=== PATIENT | male | born 1965 | race American Indian/Alaskan Native ===

== ENCOUNTER 2016-08-19 07:17 | Day surgery (SDC) | payer BC ==
[2016-08-19 07:18] VITALS: BMI 41.3
--- NOTE | 2016-08-19 08:02 | C.PDOC ---
History Of Present Illness 50-year-old male, PMhx includes Hypertension, presents to the emergency department with complaints of difficulty urinating x 1 week. Patient states he feels like he cannot empty his bladder, and describes his urine as "dribbling." Patient was seen by Dr Dave Salas , who referred patient to ED for further evaluation. (-)penile discharge (-)hematuria (-)rashes (-)fevers (-)back pain (- )abdominal pain, or any other associated symptoms. No other complaints at this time. Time Seen by Provider: 08/19/16 07:29 Chief Complaint (Nursing): Medical Clearance History Per: Patient History/Exam Limitations: no limitations Onset/Duration Of Symptoms: Days Current Symptoms Are (Timing): Still Present Severity: Moderate Past Medical History Reviewed: Historical Data, Nursing Documentation, Vital Signs Vital Signs: Last Vital Signs Temp 97.5 F L 08/19/16 16:15 Pulse 68 08/19/16 16:15 Resp 20 08/19/16 16:15 BP 163/97 H 08/19/16 16:15 Pulse Ox 97 08/19/16 16:15 - Medical History PMH: HTN, Kidney Stones, Chronic Kidney Disease Family History: States: No Known Family Hx - Social History Hx Alcohol Use: Yes Hx Substance Use: No Review Of Systems Except As Marked, All Systems Reviewed And Found Negative. Constitutional: Negative for: Fever Gastrointestinal: Negative for: Nausea, Vomiting, Abdominal Pain Genitourinary: Positive for: Other (Inability to void). Negative for: Dysuria, Hematuria, Penile Discharge Musculoskeletal: Negative for: Back Pain Physical Exam - Physical Exam Appears: Non-toxic, No Acute Distress Skin: Warm, Dry, No Rash Head: Atraumatic, Normacephalic Eye(s): bilateral: Normal Inspection, EOMI Nose: Normal Oral Mucosa: Moist Neck: Normal ROM Chest: Symmetrical Cardiovascular: Rhythm Regular Respiratory: Normal Breath Sounds, No Accessory Muscle Use Gastrointestinal/Abdominal: Soft, No Tenderness Extremity: Normal ROM Neurological/Psych: Oriented x3, Normal Speech ED Course And Treatment O2 Sat by Pulse Oximetry: 96 Progress Note: Case discussed w/ Dr Dave Salas, who states to admit patient under his service. No further labs needed. Disposition - Disposition Disposition: HOSPITALIZED Disposition Time: 11:00 Condition: STABLE - Clinical Impression Clinical Impression: Urinary retention - Scribe Statement The provider has reviewed the documentation as recorded by the Scribe Jill Chavez All medical record entries made by the Jairoibe were at my direction and personally dictated by me. I have reviewed the chart and agree that the record accurately reflects my personal performance of the history, physical exam, medical decision making, and the department course for this patient. I have also personally directed, reviewed, and agree with the discharge instructions and disposition.
[2016-08-19] MEDS ORDERED: cefTRIAXone IV 1 gm in Dextros 50 ML IVPB ONE (09:00)
[2016-08-19] MEDS ORDERED: Lactated Ringer's 1,000 ML IV ONE (13:44)
[2016-08-19] MEDS ORDERED: Midazolam 2 MG/2 ML VIAL ONE (13:52)
[2016-08-19] MEDS ORDERED: Propofol 10 mg/ml Inj (20 ML) ONE (13:52)
--- NOTE | 2016-08-19 15:05 | RAD ---
HISTORY: INCONTINENCE COMPARISON: No prior. FINDINGS: BOWEL: Normal. No obstruction. No free air. BONES: No acute findings. Possible Paget disease pelvic osseous structures OTHER FINDINGS: None. IMPRESSION: No significant or acute findings to account for/ related to the clinical presentation. Additional benign and/or incidental findings described above.
[2016-08-19 15:54] VITALS: PULSE 68
--- NOTE | 2016-08-19 16:49 | RAD ---
PROCEDURE: Intraoperative Fluoroscopy. HISTORY: INCONTINENCE FINDINGS: Fluoroscopic assistance was provided for urinary retention. Please than 1 hr fluoroscopic time utilized during performance of the procedure.
[2016-08-19 19:21] VITALS: O2SAT 96
[2016-08-19 19:46] VITALS: BP 160/90; RESP 18; TEMP 97.1
--- NOTE | 2016-08-22 17:24 | CARD ---
APPROVED REPORT EKG Measurement Heart [id number] <Conclusion> Normal sinus rhythm Moderate voltage criteria for LVH, may be normal variant Nonspecific T wave abnormality Abnormal ECG
--- NOTE | 2016-09-06 11:14 | HP ---
REASON FOR ADMISSION: Urology emergency admission. The reason it is an emergency admission is the patient cannot urinate, he is in retention. HISTORY: This is a very pleasant 50-year-old gentleman who has voiding dysfunction, decreased force of stream. I suspect urethral stricture disease. He has significant history of gross hematuria, history of kidney stones. He is here now because he cannot urinate. We discussed options. It is a holiday weekend, but he is unable to urinate and we are bringing him in as an emergency. He is here for a cystoscopy, possible IOU (see the addendum listed below). PAST MEDICAL AND SURGICAL HISTORY: He has no history of an NH or CVA. MEDICATIONS: See the chart. ALLERGIES: None. REVIEW OF SYSTEMS: As above. 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 He is a very pleasant gentleman about the entire matter, but he is in severe pain and discomfort, req uiring an emergency admission and emergency procedure. PHYSICAL EXAMINATION: GENERAL: Well-developed, well-nourished male. His body habitus is noted. He is very tall. His physical exam is otherwise unremarkable. LUNGS: Clear. HEART: Normal sinus. ABDOMEN: Overall soft. GENITOURINARY: He has no testicular masses. RECTAL: Deferred till cystoscopy, but I will mention now, 30 gram prostate, soft and smooth. LABORATORY VALUES: In the chart and within relatively normal limits. DIAGNOSES: Urinary retention, voiding dysfunction, decreased force of stream (I suspect a urethral s tricture). PLAN: The patient will be given antibiotic prophylaxis. He will go to the OR for immediate cystosco py, internal optical urethrotomy with insertion of a Mtz catheter, then further plans will follow. ADDENDUM: I subsequently see the operative report. We actually found a tremendously large bladder s tone that must be with the patient and causing the problem. See the operative report. During this procedure, as you can see in the operative report, it was not reasonable to try to get the whol e stone. I tried using a little bit of a crushing, grasping forceps, but it was too big and I did no t think I should break the equipment and availability for laser etc., was not something that we could have done as an emergency with this team that I had with me. So we left the patient with an indwelling Mtz catheter. Again, it is a holiday weekend, it is an emergency and we relieved him of his trouble where he could not urinate. Hardik Salas MD cc: [id number] TT: 09/06/2016 11:14:10 pedro
--- NOTE | 2016-09-06 11:27 | OP ---
PROCEDURE DATE: 08/19/2016 PREOPERATIVE DIAGNOSES: Urinary retention, voiding dysfunction, rule out urethral stricture. POSTOPERATIVE DIAGNOSES: Urinary retention, voiding dysfunction, rule out urethral stricture, but th ere is no urethral stricture present, but there is a tremendously large bladder stone. PROCEDURES: Cystoscopy, a cystogram, and a cystolitholapaxy that is really mostly a stone crushing. COMPARISON: There were no complications. BLOOD LOSS: Less than 20 mL. FINDINGS: 1. Normal anterior urethra, no strictures. 2. From the veru on in, it is visually occlusive about 3 cm. 3. In the bladder, moderate trabeculation, but there is a tremendously large bladder stone. I just want to make an addendum and then will see the body of the report. I tried as best as angel ernst with the team that is here; it is an emergency. My goal was to get him out of retention. I though t it was a stricture, but with the team that is here in the day, the setting, the whole environment, I was not able to comfortably set up a laser and run the risk for any problems, perforations, etc., o r complications from the laser and so, therefore, we terminated the procedure having inserted a Mtz catheter with the plan to bring the patient back to the operating room for a laser lithotripsy of th e stone to follow. DESCRIPTION OF PROCEDURE: After obtaining informed consent, the patient was placed on the table, rou eben monitors placed, timeouts were called. My preoperative expectations on his decreased force of s tream and slow stream and in his 50-year-old category was to find a urethral stricture and for an IOU , but it turns out the anterior urethra is normal, no strictures. From the veru on in, it is visuall y occlusive about 2-3 cm. Next finding which we actually saw on the imaging was a gigantic stone wit hin the urinary bladder. It is about 2 cm in size. At this point, I did not feel comfortable to set up the laser, and so I tried to get a grasping force ps and see if we could just break a piece at a time. I tried seeing if I could grab it and gently pu ll it out through the scope, not through the urethra and run the risk of urethral disruption, but act ually try to grab it but I could not get a good podiatrist and I was worried about breaking the grasping fo rceps and/or also causing urethral damage and perhaps to keep coming back. So at this point, knowing even that he had a stone and he was having so much trouble urinating and in urinary retention, I just decided to insert a Mtz catheter. We will quickly (it is a holiday week end, it is 08/19/2016) bring him to the operating room as a nonemergency first thing in the morning o n 08/21. The patient tolerated the procedure well without complication. ADDENDUM: Once in the recovery room, I showed the patient some pictures and I explained this all to him, and then I will explain more later when he is back on the floor and eating. Hardik Salas MD cc: [id number] TT: 09/06/2016 11:26:42 mn
== END 2016-08-19 19:15 | disposition home or self-care (01) ==
LOC: C.ER 07:17 → C.SDS 08:13 → UNDOADMIN 08:13 → C.9E 08:13 → C.5T 09:32 → C.9E 09:32 → C.5T 14:43 → C.9E 14:43 → C.6T 14:54 → C.9E 14:54 → C.SDS 19:15 → UNDODISIN 19:15
PROVIDERS: ATTEND Urology
DX: N21.0 Calculus in bladder (principal); R33.8 Other retention of urine; N32.89 Other specified disorders of bladder
CPT/HCPCS: 51600; 52318; 74000; 74430; 76000; 82948; 93005; 96365; 99285; A4322; C1769; J0131; J0696; J1885; J7120